=== PATIENT | male | born 2000 | race Hispanic/Latino ===

== ENCOUNTER 2021-06-15 17:34 | Emergency (ER) | payer SELFPAY ==
[~2021-06-15] VITALS: Ht 175.3 cm; Wt 59.0 kg
[2021-06-15] MEDS ORDERED: AUGMENTIN 875-1 EACH PO (17:57)
== END 2021-06-15 18:10 | disposition home or self-care (01) ==
LOC: ER 17:52
DX: L60.0 Ingrowing nail (principal)
CPT/HCPCS: 99283